=== PATIENT | male | born 1995 | race Caucasian/White ===

== ENCOUNTER 2018-04-05 18:52 | Emergency (ER) | payer SELFPAY ==
[~2018-04-05] VITALS: Ht 182.9 cm; Wt 90.7 kg
[2018-04-05 19:02] VITALS: BP 109/76
== END 2018-04-05 21:17 ==
LOC: ER 18:55
DX: S63.92XA Sprain of unspecified part of left wrist and hand, initial encounter (principal); S63.91XA Sprain of unspecified part of right wrist and hand, initial encounter; Z02.89 Encounter for other administrative examinations; X58.XXXA Exposure to other specified factors, initial encounter; Y93.89 Activity, other specified; Y99.8 Other external cause status; Y92.89 Other specified places as the place of occurrence of the external cause
CPT/HCPCS: 73120